=== PATIENT | male | born 1970 | race Caucasian/White ===

== ENCOUNTER 2017-07-08 18:39 | Emergency (ER) | payer BC ==
[~2017-07-08] VITALS: Ht 182.9 cm; Wt 108.9 kg
[2017-07-08] MEDS ORDERED: LEXAPRO20 M2 PO (20:27)
[2017-07-08] MEDS ORDERED: LAMICTAL200 M2 PO (20:27)
[2017-07-08] MEDS ORDERED: NUVIGIL250 M1 PO (20:28)
== END 2017-07-08 21:45 ==
LOC: EDMED 18:39
DX: G43.909 Migraine, unspecified, not intractable, without status migrainosus (principal)
CPT/HCPCS: J0780; J1200; J1885